=== PATIENT | female | born 1955 | race Caucasian/White ===

== ENCOUNTER 2018-11-05 13:38 | Emergency (ER) | payer MEDICAID, SELFPAY ==
[2018-11-05 13:49] VITALS: BP 164/53; PULSE 64; RESP 16; TEMP 37; O2SAT 97
--- NOTE | 2018-11-05 13:58 | DI.RAD_ITS ---
SYMPTOMS/DIAGNOSIS: CAUGHT IN SMALL CARVING SAW RIGHT THUMB: Four views were obtained. No fracture is seen.
--- NOTE | 2018-11-05 14:04 | ED.GENADUL_ITS ---
Discharge Plan Disposition Patient Disposition: HOME Condition: Fair Discharge Details Chief Complaint: Laceration Clinical Impression: Laceration of right thumb Primary Care Provider: Chandni Phillips ED Provider: Michelle Vicente Home Meds and New Rx's Prescriptions: Continued clobetasol-emollient 45 GM cream 1 lizette Topical DAILY PRN Qty: 45 RF: 3 nicotine (polacrilex) 4 MG gum 4 mg PO Q3H PRN Qty: 240 RF: 1 omeprazole 20 MG capsule,delayed release(DR/EC) 20 mg PO DAILY Qty: 60 RF: 0 aspirin [Aspir-81] 81 MG tablet,delayed release (DR/EC) 81 mg PO DAILY Qty: 90 RF: 4 simvastatin 40 MG tablet 40 mg PO HS Qty: 90 RF: 4 hydrochlorothiazide 25 MG tablet 25 mg PO DAILY Qty: 90 RF: 4 Discharge Instructions Instructions: Care For Your Stitches (ED), Laceration (ED) Additional Instructions: Keep wound clean, dry, covered. Keep current dressing on for the next 24 hours. May cover with bandaid after that. May wash with soap and water but do not soak. Wear a glove when preforming activities that may lead to possible infection. Monitor for signs of infection including redness, warmth, drainage, fevers/chills. If these arise seek care urgently once again. Otherwise please return in one week for suture removal. Referrals: Chandni Phillips, ZAKI [Primary Care Provider] - Discharge Data Discharge Date/Time-TO BE ENTERED AT DEPARTURE: 11/05/18 15:20 Medical Decision Making Patient 63-year-old right-hand dominant female presents today with chief complaint laceration to the distal aspect of the right thumb. She reports a prior to arrival she was working with a band saw cutting a piece of wood when she slipped and cut the distal aspect of her thumb. Denies other injury at the time of the incident. Last tetanus was updated in 2015. 2 point discrimination is diminished distal to the laceration. No active bleeding at this time, patient ahs been applying pressure to the wound. Obtain x-ray to evaluate for any bony abnormality given the depth of the wound. No bony normality noted on the imaging Patient I discussed risk/benefits of closure as well as expected procedural steps. She voiced understanding and wished to proceed Procedure note: Using standard sterile technique, a digital block was performed using 1% lidocaine plain. 5 cc was injected. The sufficiently anesthetized the digit. Wound was then copiously irrigated with sterile saline and cleansed with chlorhexidine. Wound was explored to base in bloodless field. No foreign body or debris was noted. Attention was then turned to closure. #5 simple interrupted sutures using a 5-0 nylon was placed. Patient tolerated procedure well and a dry, sterile, bulky dressing was applied per Patient I discussed wound care in depth. Advised that she return in 1 week for suture removal. We discussed signs symptoms of infection when to seek care urgently once again. All of her questions and concerns were addressed and she is in agreement this plan. HPI General Mode of arrival: ambulatory . Date/Time Provider Initiated Documentation: 11/05/18 13:45 . Limitations to Documentation: no limitations . Information obtained by: patient and family . History of Present Illness 63 year old F presents to the emergency department with the chief complaint of laceration to right thumb, described as moderate, with intensity rated at 5. Quality is described as aching, and is localized to the right and upper extremity. Patient reports no radiation. Patient started experiencing this minute(s) (30) and it has been constant. No relieving factors improve symptom(s), No exacerbating factors reported . Patient notes denies fever/chills and rash. Patient did receive the following treatments prior to arrival, none Related Data Home Medications Medication Instructions Recorded Confirmed clobetasol-emollient 1 lizette TOPICAL DAILY PRN #45 gm 02/02/15 11/05/18 nicotine (polacrilex) 4 mg PO Q3H PRN #240 piece of gum 03/01/16 11/05/18 aspirin [Aspir-81] 81 mg PO DAILY #90 tab-cap 03/25/18 11/05/18 hydrochlorothiazide 25 mg PO DAILY #90 tab-cap 03/25/18 11/05/18 omeprazole 20 mg PO DAILY #60 tab-cap 03/25/18 11/05/18 simvastatin 40 mg PO HS #90 tab-cap 03/25/18 11/05/18 Previous Rx's Medication Instructions Recorded aspirin [Aspir-81] 81 mg PO DAILY #90 tab-cap 03/25/18 hydrochlorothiazide 25 mg PO DAILY #90 tab-cap 03/25/18 omeprazole 20 mg PO DAILY #60 tab-cap 03/25/18 simvastatin 40 mg PO HS #90 tab-cap 03/25/18 Allergies Allergy/AdvReac Type Severity Reaction Status Date / Time No Known Allergies Allergy Unverified 11/05/18 13:52 Review of Systems Constitutional Reports as per HPI, Denies chills and Denies fever(s) Musculoskeletal Reports as per HPI Integumentary/Breasts Reports as per HPI Neurologic Reports as per HPI, Denies sensory deficit and Denies paresthesias PFS Surgical History Abdominal hysterectomy Bilateral salpingectomy with oophorectomy Oophrectomy, Right STRESS TEST (02/12/14) Family History Mother Disorder of thyroid gland Essential hypertension Personal history of malignant neoplasm Heart disease Hyperlipidemia Stroke Father Essential hypertension Heart disease Hyperlipidemia Brother Essential hypertension Hyperlipidemia Brother Essential hypertension Hyperlipidemia Brother Essential hypertension Meniere's disease Brother Hyperlipidemia Grandfather Heart disease Grandfather Heart disease Grandmother Personal history of malignant neoplasm Grandmother Heart disease Social History Smoking/Tobacco Use Status: Former Tobacco Use Exam Const General: cooperative, healthy appearing, comfortable, no acute distress and well developed Nutritional Appearance: average body habitus and well nourished Orientation: alert and awake Resp Effort & Inspection: normal respiratory effort, able to speak in complete sentences and no respiratory distress Cardio Rate: regular rate Rhythm: regular rhythm Skin Trauma: laceration (1.5cm laceration to distal right thumb, no active bleeding) Neuro General: alert and awake Cognition: normal cognition Speech: speech normal Gait: normal gait Sensory Exam: abnormal double simultaneous stimulation (diminished distal to laceration) Extrem Right upper extremity: full ROM, normal capillary refill, no joint enlargement and hand Details: normal capillary refill, tenderness and laceration; neurosensory exam abnormal (2point diminished as above); abnormal to inspection (laceration as above), no cyanosis and no edema Psych Appearance: grossly normal and well kempt Mental Status: mental status grossly normal Speech and Movement: speech and movement normal
--- NOTE | 2018-11-05 15:36 | DI.VRAD_ITS ---
EXAM: XR Right Finger(s), 2 or More Views EXAM DATE/TIME: 11/05/2018 2:19 PM CLINICAL HISTORY: 63 years old, female; Injury or trauma; Injury history: Finger vs small carving saw; Initial encounter; Laceration; Right; Thumb; Injury date: 11/05/2018 TECHNIQUE: XR Right finger minimum 2 views. COMPARISON: No relevant prior studies available. FINDINGS: Bones/joints: Bony alignment is anatomic without evidence for fracture or dislocation. Soft tissues: Soft tissue laceration noted at the level of the distal tuft, palmar aspect. IMPRESSION: Pulmonary aspect laceration distal tuft of the first digit. No bony abnormality evident. COMMENT: Preliminary interpretation is based on receipt of 4 image(s). A final report will be issued subsequently. Dictated and Authenticated by: Jeniffer Velásquez MD. Ordering:FABIOLA Martinez MD
== END 2018-11-05 15:20 | disposition home or self-care (01) ==
LOC: ER 15:37
PROVIDERS: Emergency Provider Physician Assistant; PCP Nurse Practitioner Family
DX: S61.011A Laceration without foreign body of right thumb without damage to nail, initial encounter (principal); W31.2XXA Contact with powered woodworking and forming machines, initial encounter
CPT/HCPCS: 12001; 73140

== ENCOUNTER 2018-11-12 10:19 | Emergency (ER) | payer MEDICAID, SELFPAY ==
[2018-11-12 10:23] VITALS: TEMP 36.7
--- NOTE | 2018-11-12 10:47 | W.ED.GENAD ---
Discharge Plan Disposition Patient Disposition: HOME Condition: Good Discharge Details Chief Complaint: SutureRem Clinical Impression: Encounter for removal of sutures Primary Care Provider: Chandni Phillips ED Provider: Gonsalo Bhatt Home Meds and New Rx's Prescriptions: No Action clobetasol-emollient 45 GM cream 1 lizette Topical DAILY PRN Qty: 45 RF: 3 nicotine (polacrilex) 4 MG gum 4 mg PO Q3H PRN Qty: 240 RF: 1 omeprazole 20 MG capsule,delayed release(DR/EC) 20 mg PO DAILY Qty: 60 RF: 0 aspirin [Aspir-81] 81 MG tablet,delayed release (DR/EC) 81 mg PO DAILY Qty: 90 RF: 4 simvastatin 40 MG tablet 40 mg PO HS Qty: 90 RF: 4 hydrochlorothiazide 25 MG tablet 25 mg PO DAILY Qty: 90 RF: 4 Discharge Instructions Instructions: Stitches Removal (ED) Additional Instructions: Watch for any signs of infection and return immediately if these occur otherwise follow-up with your primary care provider as Referrals: Chandni Phillips, ZAKI [Primary Care Provider] - Medical Decision Making Patient presenting to the emergency department for chief complaint of right thumb laceration and need of suture removal. Patient states laceration to thumb approximately 1 week ago. Wound appears well-healing and no signs of purulent drainage, dehiscence, or significant erythema. 5 sutures were removed and there was slight opening of the wound so Steri-Strips were placed over wound and patient given a foam metal splint to limit mobility of wound and encouraged to use this over the next week to further continue healing. There was no significant bleeding or drainage so I feel the patient is able to be safely discharged without any further interventions. Patient encouraged to watch for signs of infection and return immediately if these occur. HPI General Mode of arrival: ambulatory. Date/Time Provider Initiated Documentation: 11/12/18 10:21. Limitations to Documentation: no limitations. Information obtained by: patient, RN notes reviewed and old records reviewed. History of Present Illness 63 year old F presents to the emergency department with the chief complaint of Suture removal, described as mild, with intensity rated at 2. and is localized to the right and upper extremity. Patient notes no other symptoms.. Patient did receive the following treatments prior to arrival, none Related Data Home Medications Medication Instructions Recorded Confirmed clobetasol-emollient 1 lizette TOPICAL DAILY PRN #45 gm 02/02/15 11/05/18 nicotine (polacrilex) 4 mg PO Q3H PRN #240 piece of gum 03/01/16 11/05/18 aspirin [Aspir-81] 81 mg PO DAILY #90 tab-cap 03/25/18 11/05/18 hydrochlorothiazide 25 mg PO DAILY #90 tab-cap 03/25/18 11/05/18 omeprazole 20 mg PO DAILY #60 tab-cap 03/25/18 11/05/18 simvastatin 40 mg PO HS #90 tab-cap 03/25/18 11/05/18 Previous Rx's Medication Instructions Recorded aspirin [Aspir-81] 81 mg PO DAILY #90 tab-cap 03/25/18 hydrochlorothiazide 25 mg PO DAILY #90 tab-cap 03/25/18 omeprazole 20 mg PO DAILY #60 tab-cap 03/25/18 simvastatin 40 mg PO HS #90 tab-cap 03/25/18 Allergies Allergy/AdvReac Type Severity Reaction Status Date / Time No Known Allergies Allergy Unverified 11/05/18 13:52 General Stated Complaint: SutureRem BUBBA: 5 Review of Systems Constitutional Denies chills and Denies fever(s) Musculoskeletal Reports as per HPI Integumentary/Breasts Denies rash and Denies skin swelling PFSH Surgical History Abdominal hysterectomy Bilateral salpingectomy with oophorectomy Oophrectomy, Right STRESS TEST (02/12/14) Family History Mother Disorder of thyroid gland Essential hypertension Personal history of malignant neoplasm Heart disease Hyperlipidemia Stroke Father Essential hypertension Heart disease Hyperlipidemia Brother Essential hypertension Hyperlipidemia Brother Essential hypertension Hyperlipidemia Brother Essential hypertension Meniere's disease Brother Hyperlipidemia Grandfather Heart disease Grandfather Heart disease Grandmother Personal history of malignant neoplasm Grandmother Heart disease Social History Smoking/Tobacco Use Status: Former Tobacco Use Exam Const General: cooperative, comfortable and no acute distress Orientation: alert, awake and oriented x3 Skin Rashes: no rashes Trauma: laceration (Right thumb laceration healing well without erythema, purulence,) Course Vital Signs Temperature 36.7 C 11/12/18 10:23 Temperature 36.7 C 11/12/18 10:23 Temperature Source Temporal Artery Scan 11/12/18 10:23 Oxygen Delivery Method Room Air 11/12/18 10:23 Oxygen Flow Rate 0 11/12/18 10:23 Pain Level 0 11/12/18 10:23
--- NOTE | 2018-11-12 10:51 | ED.GENADUL_ITS ---
Discharge Plan Disposition Patient Disposition: HOME Condition: Good Discharge Details Chief Complaint: SutureRem Clinical Impression: Encounter for removal of sutures Primary Care Provider: Chandni Phillips ED Provider: Gonsalo Bhatt Home Meds and New Rx's Prescriptions: No Action clobetasol-emollient 45 GM cream 1 lizette Topical DAILY PRN Qty: 45 RF: 3 nicotine (polacrilex) 4 MG gum 4 mg PO Q3H PRN Qty: 240 RF: 1 omeprazole 20 MG capsule,delayed release(DR/EC) 20 mg PO DAILY Qty: 60 RF: 0 aspirin [Aspir-81] 81 MG tablet,delayed release (DR/EC) 81 mg PO DAILY Qty: 90 RF: 4 simvastatin 40 MG tablet 40 mg PO HS Qty: 90 RF: 4 hydrochlorothiazide 25 MG tablet 25 mg PO DAILY Qty: 90 RF: 4 Discharge Instructions Instructions: Stitches Removal (ED) Additional Instructions: Watch for any signs of infection and return immediately if these occur otherwise follow-up with your primary care provider as Referrals: Chandni Phillips, ZAKI [Primary Care Provider] - Medical Decision Making Patient presenting to the emergency department for chief complaint of right thumb laceration and need of suture removal. Patient states laceration to thumb approximately 1 week ago. Wound appears well-healing and no signs of purulent drainage, dehiscence, or significant erythema. 5 sutures were removed and there was slight opening of the wound so Steri-Strips were placed over wound and patient given a foam metal splint to limit mobility of wound and encouraged to use this over the next week to further continue healing. There was no significant bleeding or drainage so I feel the patient is able to be safely discharged without any further interventions. Patient encouraged to watch for signs of infection and return immediately if these occur. HPI General Mode of arrival: ambulatory . Date/Time Provider Initiated Documentation: 11/12/18 10:21 . Limitations to Documentation: no limitations . Information obtained by: patient, RN notes reviewed and old records reviewed . History of Present Illness 63 year old F presents to the emergency department with the chief complaint of Suture removal, described as mild, with intensity rated at 2. and is localized to the right and upper extremity. Patient notes no other symptoms.. Patient did receive the following treatments prior to arrival, none Related Data Home Medications Medication Instructions Recorded Confirmed clobetasol-emollient 1 lizette TOPICAL DAILY PRN #45 gm 02/02/15 11/05/18 nicotine (polacrilex) 4 mg PO Q3H PRN #240 piece of gum 03/01/16 11/05/18 aspirin [Aspir-81] 81 mg PO DAILY #90 tab-cap 03/25/18 11/05/18 hydrochlorothiazide 25 mg PO DAILY #90 tab-cap 03/25/18 11/05/18 omeprazole 20 mg PO DAILY #60 tab-cap 03/25/18 11/05/18 simvastatin 40 mg PO HS #90 tab-cap 03/25/18 11/05/18 Previous Rx's Medication Instructions Recorded aspirin [Aspir-81] 81 mg PO DAILY #90 tab-cap 03/25/18 hydrochlorothiazide 25 mg PO DAILY #90 tab-cap 03/25/18 omeprazole 20 mg PO DAILY #60 tab-cap 03/25/18 simvastatin 40 mg PO HS #90 tab-cap 03/25/18 Allergies Allergy/AdvReac Type Severity Reaction Status Date / Time No Known Allergies Allergy Unverified 11/05/18 13:52 General Stated Complaint: SutureRem BUBBA: 5 Review of Systems Constitutional Denies chills and Denies fever(s) Musculoskeletal Reports as per HPI Integumentary/Breasts Denies rash and Denies skin swelling PFSH Surgical History Abdominal hysterectomy Bilateral salpingectomy with oophorectomy Oophrectomy, Right STRESS TEST (02/12/14) Family History Mother Disorder of thyroid gland Essential hypertension Personal history of malignant neoplasm Heart disease Hyperlipidemia Stroke Father Essential hypertension Heart disease Hyperlipidemia Brother Essential hypertension Hyperlipidemia Brother Essential hypertension Hyperlipidemia Brother Essential hypertension Meniere's disease Brother Hyperlipidemia Grandfather Heart disease Grandfather Heart disease Grandmother Personal history of malignant neoplasm Grandmother Heart disease Social History Smoking/Tobacco Use Status: Former Tobacco Use Exam Const General: cooperative, comfortable and no acute distress Orientation: alert, awake and oriented x3 Skin Rashes: no rashes Trauma: laceration (Right thumb laceration healing well without erythema, purulence,) Course Vital Signs Temperature 36.7 C 11/12/18 10:23 Temperature 36.7 C 11/12/18 10:23 Temperature Source Temporal Artery Scan 11/12/18 10:23 Oxygen Delivery Method Room Air 11/12/18 10:23 Oxygen Flow Rate 0 11/12/18 10:23 Pain Level 0 11/12/18 10:23
== END 2018-11-12 10:55 | disposition home or self-care (01) ==
LOC: ER 11:22
PROVIDERS: Emergency Provider Nurse Practitioner Family; PCP Nurse Practitioner Family
DX: S61.011D Laceration without foreign body of right thumb without damage to nail, subsequent encounter (principal); W31.2XXD Contact with powered woodworking and forming machines, subsequent encounter; Z48.02 Encounter for removal of sutures

== ENCOUNTER 2019-03-17 12:49 | Outpatient (CLI) | payer MEDICARE, OTHER, SELFPAY ==
[2019-03-17 13:24] LABS: Hemoglobin A1C 6.2 % (4.5-6.2)
[2019-03-17 14:31] LABS: ALT 20 U/L (12-78); AST 21 U/L (15-37); Albumin 3.9 g/dL (3.4-5.0); Alkaline Phosphatase 88 U/L (46-116); Anion Gap 8.8 mmol/L (3-11); BUN 11 mg/dL (7-18); Bilirubin, Total 0.4 mg/dL (0.2-1.0); CO2 30.2 mmol/L (21.0-32.0); CREATININE 0.72 mg/dL (0.55-1.02); Calcium 9.6 mg/dL (8.5-10.1); Chloride 102 mmol/L (98-107); Cholesterol 194 mg/dL (50-200); Glucose 110 mg/dL (70-100); HDL Cholesterol 59 mg/dL (40-60); LDL CHOLESTEROL 115 mg/dL (<100); Potassium 3.8 mmol/L (3.5-5.1); Sodium 141 mmol/L (136-145); Total Protein 7.1 g/dL (6.4-8.2); Triglyceride 140 mg/dL (30-150)
== END 2019-03-17 13:09 ==
PROVIDERS: PCP Nurse Practitioner Family; Visit Provider Nurse Practitioner Family
DX: I10 Essential (primary) hypertension (principal); E78.5 Hyperlipidemia, unspecified; R73.09 Other abnormal glucose
CPT/HCPCS: 36415; 80053; 80061; 83721; 83036

== ENCOUNTER 2019-04-08 00:10 | Outpatient (CLI) | payer MEDICARE, OTHER, SELFPAY ==
--- NOTE | 2019-04-08 14:49 | DI.RAD_ITS ---
SYMPTOMS/DIAGNOSIS: ASYMPTOMATIC POSTMENOPAUSAL STATE, Z78.0 DEXA SCAN: Routine examination was performed. The single lateral view of the spine shows no compression deformities. Evaluation of the left hip shows a total T score of -1.9 and a Z score of -0.7. This is consistent with osteopenia and an increased fracture risk. Evaluation of the lumbar spine shows a total T score of 1.1 and a Z score of 2.9. This is within normal limits. There is no evidence of osteoporosis. IMPRESSION: Osteopenia in the left hip.
--- NOTE | 2019-04-08 14:49 | DI.MAMMO_ITS ---
SYMPTOMS/DIAGNOSIS: SCREENING, Z12.31 MAMMOGRAMS: Mammograms were interpreted according to the usual protocol including computer analysis with CAD system, tomosynthesis and C view imaging. The breast tissue is of moderate radiodensity. There is no evidence of a mass. There are no suspicious calcifications and there has been no significant interval change when compared with prior images. SUMMARY: No evidence of malignancy, category 1, yearly screening mammography is recommended. Breast density category B. SA ASSESSMENT OF FINDINGS: Negative. Category 1. Patient will receive a letter notifying them of these results. BI-RADS category B. There are scattered areas of fibroglandular density.
== END 2019-04-08 00:30 ==
PROVIDERS: PCP Nurse Practitioner Family; Visit Provider Nurse Practitioner Family
DX: Z12.31 Encounter for screening mammogram for malignant neoplasm of breast (principal); M85.88 Other specified disorders of bone density and structure, other site; Z78.0 Asymptomatic menopausal state
CPT/HCPCS: 77063; 77067; 77080

== ENCOUNTER 2020-04-15 02:46 | Outpatient (CLI) | payer MEDICARE, OTHER, SELFPAY ==
--- NOTE | 2020-04-15 12:15 | DI.MAMMO_ITS ---
EXAM: MAMMO SCREENING CLINICAL HISTORY: screening,z12.39 TECHNIQUE: Mammograms were interpreted according to the usual protocol including computer analysis w [employer] CAD system, tomosynthesis and C-view imaging. COMPARISON: FINDINGS: The breasts are of moderate density with fairly symmetrical distribution of fibroglandular tissue. N o dominant mass or clumped microcalcification is identified in either breast. Current examination is compared with previous studies including March 2019 and there has been no gross interval change in lizette earance in comparison with the prior studies. IMPRESSION: No specific evidence of malignancy at this time. Routine screening examinations are suggested at yea rly intervals due to the family history of breast carcinoma. BI-RADS Cat 1 - Negative: Breast Density - Category B - Scattered areas of fibroglandular density:
== END 2020-04-15 03:06 ==
PROVIDERS: PCP Nurse Practitioner Family; Visit Provider Nurse Practitioner Family
DX: Z12.31 Encounter for screening mammogram for malignant neoplasm of breast (principal); Z80.3 Family history of malignant neoplasm of breast
CPT/HCPCS: 77063; 77067

== ENCOUNTER 2020-04-19 22:27 | Outpatient (REF) | payer MEDICARE, OTHER, SELFPAY ==
[2020-04-19 20:56] LABS: ALT 26 U/L (14-59); AST 22 U/L (15-37); Albumin 3.8 g/dL (3.4-5.0); Alkaline Phosphatase 80 U/L (46-116); Anion Gap 10.6 mmol/L (3-11); BUN 14 mg/dL (7-18); Bilirubin, Total 0.3 mg/dL (0.2-1.0); CO2 29.4 mmol/L (21.0-32.0); CREATININE 0.68 mg/dL (0.55-1.02); Calcium 9.1 mg/dL (8.5-10.1); Calculated LDL 114 mg/dL (<100); Chloride 104 mmol/L (98-107); Cholesterol 190 mg/dL (<200); Glucose 150 mg/dL (74-106); HDL Cholesterol 57 mg/dL (40-60); Potassium 3.5 mmol/L (3.5-5.1); Sodium 144 mmol/L (136-145); Total Protein 6.9 g/dL (6.4-8.2); Triglyceride 98 mg/dL (<150)
[2020-04-19 21:11] LABS: Hemoglobin A1C 5.9 % (3.8-5.6)
[2020-04-19 21:23] LABS: Creatine Kinase 98 U/L (26-192)
[2020-04-19 21:34] LABS: Vitamin D 25 Total 67.1 ng/ml (30-100)
== END 2020-04-19 22:47 ==
LOC: LBN 22:27
PROVIDERS: PCP Nurse Practitioner Family; Visit Provider Nurse Practitioner Family
DX: R73.03 Prediabetes (principal); M85.852 Other specified disorders of bone density and structure, left thigh; M79.10 Myalgia, unspecified site; E78.5 Hyperlipidemia, unspecified
CPT/HCPCS: 80053; 80061; 82306; 82550; 83036

== ENCOUNTER 2021-04-20 01:34 | Outpatient (CLI) | payer MEDICARE, OTHER, SELFPAY ==
--- NOTE | 2021-04-20 08:15 | DI.MAMMO_ITS ---
Exam(s) MAMMO SCREENING EXAM: MAMMO SCREENING CLINICAL HISTORY: screening, Z12.39 TECHNIQUE: Bilateral full field digital CC and MLO mammographic images were obtained with 3D tomosyn thesis and utilizing computer aided detection (CAD). COMPARISON: Available for comparison. FINDINGS: Masses/Architectural Distortion: None seen. Microcalcifications: No suspicious pleomorphic-type are seen. Skin Thickening/Nipple Retraction: None. IMPRESSION: 1. No significant interval change with no specific features of malignancy noted. 2. Unless there is more urgent need, screening mammography is recommended, as per [employer] guidelines. BI-RADS Category 1 - Negative Breast Density - Category B - Scattered areas of fibroglandular density Breast density category C or D implies that the patient has dense breast tissue. Dense breast tissue is very common and is not abnormal but dense breast tissue can make it harder to find cancer on a ma mmogram. Also, dense breast tissue may increase their breast cancer risk. This information about the result of the mammogram report was provided to the patient to raise their awareness. Use this report when you speak with the patient about their risks for breast cancer, which includes their family hist ory. At that time, you may recommend for more screening tests (Ultrasound or MRI) as they might be us eful based on their risk. A negative radiographic report should not delay biopsy if a dominant or clinically suspicious mass is present. Up to ten percent of cancers are not identified on mammography. A negative report may reinforce clinical impression. Adenosis and dense breasts may obscure an underlying neoplasm. False positive reports average 6 to 10%. Patient will receive a letter notifying them of these results.
--- NOTE | 2021-04-20 14:03 | DI.US_ITS ---
APPROVED REPORT EXAM: Comprehensive 2D, Doppler, and color-flow Echocardiogram Patient Location: Out-Patient Web Marketing Coordinator: April Acosta RDCS (AE) Indications: Re Evaluate Aortic Stenosis, Other Information Study Quality: Adequate Conclusion Left Ventricle : The left ventricle is normal size. The left ventricular systolic function is normal. The left ventricular ejection fraction is within the normal range. There is normal left ventricular wall thickness. There is normal LV segmental wall motion. The left ventricular diastolic function is normal. LVEF is 60%. Right Ventricle : The right ventricle is normal size. The right ventricular systolic function is norm al. The RVSP is 25.0mmHg. Aortic Valve : Aortic valve is calcified. Aortic valve is trileaflet. Trace aortic regurgitation. Mil d aortic stenosis. Peak aortic valve gradient is 21.3_mmHg. Highest mean aortic valve gradient is 11. 8mmHg. Peak aortic valve gradient is 1.24mmHg. Mitral Valve : The mitral valve is normal in structure. Mild mitral regurgitation. No evidence of lane ral valve stenosis. Great Vessels : The aortic root is normal in size. Ascending aorta is not well visualized. Aortic arc h is normal in caliber. IVC is normal in size and collapses >50% with inspiration. Compared to study from [facility] in 2018, there is no significant change. Wall motion Left Ventricle The left ventricle is normal size. The left ventricular systolic function is normal. The left ventric ular ejection fraction is within the normal range. There is normal left ventricular wall thickness. T here is normal LV segmental wall motion. The left ventricular diastolic function is normal. There is no ventricular septal defect visualized. LVEF is 60%. Right Ventricle The right ventricle is normal size. The right ventricular systolic function is normal. The RVSP is 25 .0mmHg. Atria The left atrium size is normal. The right atrium size is normal. The interatrial septum is intact wit h no evidence for an atrial septal defect. Aortic Valve Aortic valve is calcified. Aortic valve is trileaflet. Mild aortic stenosis. Peak aortic valve gradie nt is 21.3_mmHg. Highest mean aortic valve gradient is 11.8mmHg. Peak aortic valve gradient is 1.24mm Hg. Trace aortic regurgitation. Mitral Valve The mitral valve is normal in structure. No evidence of mitral valve stenosis. Mild mitral regurgitat ion. Tricuspid Valve The tricuspid valve is normal in structure. There is no tricuspid valve stenosis. Trace tricuspid reg urgitation. Pulmonic Valve The pulmonary valve is normal in structure. There is no pulmonic valvular stenosis. There is no pulmo delmy valvular regurgitation. Great Vessels The aortic root is normal in size. Ascending aorta is not well visualized. Aortic arch is normal in c aliber. IVC is normal in size and collapses >50% with inspiration. Pericardium There is no pericardial effusion. 2D Dimensions IVSD d PLAX 1.01 cm F: 0.6-1.0 LV Vol A2C d MOD 107.5 mL LVPW d PLAX 1.01 cm F: 0.6 - 1.0 LV Vol A4C d MOD 98.0 mL LVID d PLAX 4.76 cm F: 3.8 - 5.2 LA vol/ BSA A2C s A-L 26.2 mL/m2 LVDs 3.15 cm F: 2.2 - 3.5 LA vol/ BSA A4C s A-L 27.1 mL/m2 Ao Root d 2.64 cm F: 2.7 - 3.3 LA Vol/ BSA Biplane s A-L 28.0 mL/m2 RA Area A4C 13.39 cm2 LA Area A4C s MOD 18.88 cm2 RA Vol/ BSA A4C s A-L 19.1 mL/m2 LA Area A2C s MOD 17.65 cm2 LV EF Teichholz 62.2 % LV EF A4C MOD 62.4 % LVEF (Otero's) 59.41 % F: 54 - 74 LV EF A2C MOD 58.0 % LV Volume 77.77 mL F: 46 - 106 LV EF Biplane MOD 59.4 % LV Volume Index 39.88 mL/m2 F: 29 - 61 SV 61.08 mL LV Vol Biplane MOD 102.8 mL SV Index 31.33 mL/m2 FS 33.50 % M-Mode TAPSE 2.56 cm (M/F) >1.7 LV Diastology MV E' medial 0.074 (>0.07 m/s) E/A Ratio 1.4 LV E/e MED 13.05 (<14) MV E Vmax 0.97 (0.4-1.3 m/s) MV E' lateral 0.103 (>0.1 m/s) MV A Vmax 0.70 (0.4-1.3 m/s) LV E/e LAT 9.35 (<14) MV E/A Ratio 1.37 MV E/E' medial 13.10 MV E/E' lateral 9.39 Aortic Valve LVOT Area 2.77 cm2 AoV Area Vmax 1.24 cm2 LVOT Vmax 1.03 m/s AoV Area/ BSA (Vmax) 0.64 cm2/m2 LVOT Mean Kushal. 0.73 m/s BARRETT Mean Kushal. 1.23 cm2 LVOT Peak Grad 4.3 mmHg BARRETT Mean Kushal. Index 0.63 cm2/m2 LVOT Mean Grad 2.4 mmHg AR DT 2974 msec LVOT VTI 0.298 m AR PHT 862 msec LVOT Diam s 1.85 cm AoV Vmax 2.31 m/s Velocity Ratio 0.44 AoV Mean Kushal. 1.64 m/s AoV Peak Grad 21.3 mmHg LVOT SV 82.53 mL AoV Mean Grad 11.8 mmHg AoV VTI 0.599 m AoV Area VTI 1.38 cm2 AoV Area/ BSA (VTI) 0.71 cm/m2 Mitral Valve MV DT 257 (160-240 msec) MR Vmax 5.01 m/s MV PHT 75 msec MR VTI 1.748 m MV Area PHT 2.95 cm2 MR Peak Grad 100.4 mmHg MV VTI 0.405 m MR Mean Grad 77.4 mmHg MV VTI Annulus 0.421 m MR PISA Radius 0.49 cm MV Area VTI 2.12 (4.0-6.0 cm2) MR EROA 0.11 cm2 MR Aliasing Velocity 0.35 m/s MR PISA 1.53 cm2 Pulmonary Valve PV Vmax 1.08 (0.5-1.5 m/s) RVOT Peak Gr. 2.00 mmHg PV Peak Grad 4.6 mmHg RVOT Mean Gr. 1.10 mmHg PV Mean Grad 2.5 mmHg RVOT VTI 0.201 m PV VTI 0.266 m RVOT Vmax 0.71 m/s Tricuspid Valve TR Peak Grad 22.0 mmHg TR Vmax 2.35 m/s RA Pressure 3.00 mmHg RVSP (TR) 25.0 mmHg
== END 2021-04-20 01:54 ==
PROVIDERS: PCP Nurse Practitioner Family; Visit Provider Nurse Practitioner Family
DX: Z12.31 Encounter for screening mammogram for malignant neoplasm of breast (principal); I08.0 Rheumatic disorders of both mitral and aortic valves
CPT/HCPCS: 77063; 77067; 93306

== ENCOUNTER 2021-05-03 03:17 | Outpatient (CLI) | payer MEDICARE, OTHER, SELFPAY ==
[2021-05-03 12:19] LABS: Hemoglobin A1C 6.2 % (<5.7)
[2021-05-03 13:55] LABS: BUN 14 mg/dL (7-18); CREATININE 0.7 mg/dL (0.55-1.02); Calcium 9.3 mg/dL (8.5-10.1); Calculated LDL 117 mg/dL (<100); Chloride 103 mmol/L (98-107); Cholesterol 198 mg/dL (<200); Glucose 117 mg/dL (74-106); HDL Cholesterol 57 mg/dL (40-60); Potassium 3.6 mmol/L (3.5-5.1); Sodium 142 mmol/L (136-145); Triglyceride 121 mg/dL (<150)
== END 2021-05-03 03:18 | disposition home or self-care (01) ==
LOC: LBO 03:17
PROVIDERS: PCP Nurse Practitioner Family; Visit Provider Nurse Practitioner Family
DX: I10 Essential (primary) hypertension (principal); R73.03 Prediabetes; E78.5 Hyperlipidemia, unspecified
CPT/HCPCS: 36415; 80048; 80061; 83036

== ENCOUNTER 2021-06-16 07:30 | Outpatient (REF) | payer MEDICARE, OTHER, SELFPAY ==
[2021-06-16 22:18] LABS: Anion Gap 8.1 mmol/L (3-11); BUN 15 mg/dL (7-18); CO2 30.9 mmol/L (21.0-32.0); CREATININE 0.7 mg/dL (0.55-1.02); Calcium 9.6 mg/dL (8.5-10.1); Calculated LDL 102 mg/dL (<100); Chloride 103 mmol/L (98-107); Cholesterol 187 mg/dL (<200); Glucose 90 mg/dL (74-106); HDL Cholesterol 59 mg/dL (40-60); Potassium 3.9 mmol/L (3.5-5.1); Sodium 142 mmol/L (136-145); Triglyceride 133 mg/dL (<150)
== END 2021-06-17 07:30 | disposition home or self-care (01) ==
LOC: LBN 07:30
PROVIDERS: PCP Nurse Practitioner Family; Visit Provider Nurse Practitioner Family
DX: E78.5 Hyperlipidemia, unspecified (principal); I10 Essential (primary) hypertension
CPT/HCPCS: 80048; 80061

== ENCOUNTER → 2022-09-22 00:20 | Outpatient (CLI) | payer MEDICARE, SELFPAY ==
--- NOTE | 2022-09-22 08:30 | DI.RAD_ITS ---
Exam(s) XR HIP RT COMPLETE AP PELVIS EXAM: XR HIP RT COMPLETE AP PELVIS CLINICAL HISTORY: right hip into right buttock pain, M25.551, G89.29. TECHNIQUE: 2D digital imaging was performed. COMPARISON: No exams were available for comparison FINDINGS: 3 views There is no evidence of pelvic nor hip fracture. Additional views of the right hip reveal mild narro wing of the superolateral joint space. No femoral head osteophytes. No degenerative subarticular cy sts in the acetabulum. There is disc space narrowing at L4-5 level incidentally noted. IMPRESSION: Mild degenerative changes in the right hip. Disc space narrowing at L4-5 level. DATA REPOSITORY: RADIATION DOSE DELIVERED:
--- NOTE | 2022-09-22 08:30 | DI.RAD_ITS ---
Exam(s) XR LUMBAR SPINE COMPLETE EXAM: XR LUMBAR SPINE COMPLETE CLINICAL HISTORY: right hip into right buttock pain, M25.551, G89.29. TECHNIQUE: 2D digital imaging was performed. COMPARISON: No exams were available for comparison FINDINGS: Five views: The 12th ribs are rudimentary. There is no evidence of compression fracture. No pars defects. Mild disc space narrowing noted at L3-4 and L5-S1 levels. Preservation of disc height at L4-5. there is mild degenerative anterolisthesis of L2 upon L3, approximately 2 millimeters. Normal disc height at this level. No significant scoliosis. Sacroiliac joints are age-appropriate. No osseous lesions. A set joint degenerative changes are seen at the lower 3 levels. IMPRESSION: Degenerative changes as described above. DATA REPOSITORY: RADIATION DOSE DELIVERED:
== END ==
PROVIDERS: PCP Nurse Practitioner Family; Visit Provider Nurse Practitioner Family
DX: G89.29 Other chronic pain (principal); M16.11 Unilateral primary osteoarthritis, right hip; M43.16 Spondylolisthesis, lumbar region
CPT/HCPCS: 72110; 73502

== ENCOUNTER 2022-11-24 01:34 | Outpatient (CLI) | payer MEDICARE, SELFPAY ==
[2022-11-24 12:09] LABS: ALT 15 U/L (14-59); AST 21 U/L (15-37); Albumin 3.9 g/dL (3.4-5.0); Alkaline Phosphatase 96 U/L (46-116); Anion Gap 6.8 mmol/L (3-11); BUN 11 mg/dL (7-18); Bilirubin, Total 0.5 mg/dL (0.2-1.0); CO2 31.2 mmol/L (21.0-32.0); CREATININE 0.9 mg/dL (0.55-1.02); Calcium 9.6 mg/dL (8.5-10.1); Calculated LDL 77 mg/dL (<100); Chloride 102 mmol/L (98-107); Cholesterol 159 mg/dL (<200); Estimated GFR 69.64 (mL/min/1.73m2); Glucose 130 mg/dL (74-106); HDL Cholesterol 61 mg/dL (40-60); Potassium 3.6 mmol/L (3.5-5.1); Sodium 140 mmol/L (136-145); TSH (W/Ref FT4) 0.49 uIU/mL (0.36-3.74); Total Protein 7.5 g/dL (6.4-8.2); Triglyceride 108 mg/dL (<150)
[2022-11-24 22:45] LABS: Estimated Average Glucose 131 mg/dL; Hemoglobin A1C 6.2 % (<5.7)
== END 2022-11-24 01:35 | disposition home or self-care (01) ==
LOC: LBO 01:34
PROVIDERS: PCP Nurse Practitioner Family; Visit Provider Nurse Practitioner Family
DX: E78.5 Hyperlipidemia, unspecified (principal); R73.03 Prediabetes
CPT/HCPCS: 36415; 80053; 80061; 83036; 84443

== ENCOUNTER → 2023-06-27 01:42 | Outpatient (CLI) | payer MEDICARE, SELFPAY ==
--- NOTE | 2023-06-27 08:15 | DI.MAMMO_ITS ---
Exam(s) MAMMO SCREENING EXAM: MAMMO SCREENING CLINICAL HISTORY: screening,z12.39 TECHNIQUE: Mammograms were interpreted according to the usual protocol including computer analysis w [employer] CAD system, tomosynthesis and C-view imaging. COMPARISON: [id number] FINDINGS: The breasts are composed of mainly fatty density , Breast Density category A. No suspicious masses or suspicious microcalcifications are seen. No skin thickening or abnormal axillary lymph nodes are seen. There has been no significant change from prior exams. IMPRESSION: BI-RADS Category 1, Negative mammogram Yearly screening mammography is recommended. Breast Density - Category A, fatty density. A negative radiographic report should not delay biopsy if a dominant or clinically suspicious mass is present. Up to ten percent of cancers are not identified on mammography. A negative report may reinforce clinical impression. Adenosis and dense breasts may obscure an underlying neoplasm. False positive reports average 6 to 10%. Patient will receive a letter notifying them of these results.
== END ==
PROVIDERS: PCP Nurse Practitioner Family; Visit Provider Nurse Practitioner Family
DX: Z12.31 Encounter for screening mammogram for malignant neoplasm of breast (principal)
CPT/HCPCS: 77063; 77067

== ENCOUNTER 2023-08-01 04:06 | Outpatient (CLI) | payer MEDICARE, SELFPAY ==
[2023-08-02 13:13] LABS: Hepatitis C Ab w Rflx HCV PCR Negative (Negative)
== END 2023-08-01 04:07 | disposition home or self-care (01) ==
LOC: LBO 04:06
PROVIDERS: PCP Nurse Practitioner Family; Visit Provider Nurse Practitioner Family
DX: I10 Essential (primary) hypertension (principal); E78.5 Hyperlipidemia, unspecified; Z11.59 Encounter for screening for other viral diseases; Z00.00 Encounter for general adult medical examination without abnormal findings
CPT/HCPCS: 36415; 86803

== ENCOUNTER 2023-08-09 17:40 | Emergency (ER) | payer MEDICARE, SELFPAY ==
[2023-08-09 17:41] VITALS: BP 182/58; PULSE 66; RESP 20; TEMP 36.6; O2SAT 100
[2023-08-09] MEDS: Acetaminophen 500 MG TAB 1000 MG PO (19:11)
[2023-08-09] MEDS: diazePAM 2 MG TAB 2.5 MG PO (19:11)
[2023-08-09 20:14] VITALS: BP 157/61; PULSE 63; RESP 19; O2SAT 97
[2023-08-09] MEDS: diazePAM 5 MG TAB PO (20:15)
[2023-08-09] MEDS: Dexamethasone 10 MG/ML VIAL PO (20:15)
--- NOTE | 2023-08-09 21:30 | W.ED.GENAD ---
Discharge Plan Disposition Patient Disposition: Home Discharge Details Clinical Impression: Acquired torticollis Primary Care Provider: Chandni Phillips ED Provider: Nikia Lehman Home Meds and New Rx's Prescriptions: New diazepam [Valium] 5 mg tablet 5 mg PO BID PRNQty: 5 0RF Continued Acid [employer] Vice President Complete (famot) 10-800-165 mg tablet,chewable 1 tab PO DAILY nicotine 10 mg cartridge 1 inh inhalation .6-16X/DAY PRN (Reason: nicotine cravings) Qty: 168 4RF Rx Instructions: 6 to 16 cartridges/day for first 6-12 weeks. Gradually reduce use over next 6-12wks. cholecalciferol (vitamin D3) 1,000 unit capsule 1,000 unit PO DAILY hydrochlorothiazide 25 mg tablet 25 mg PO DAILY Qty: 90 3RF nicotine (polacrilex) 4 mg gum 4 mg BC Q2H MDD 24 PRN (Reason: nicotine cravings) Qty: 100 4RF Rx Instructions: Weeks 1-6: 1 every 1-2hrs Weeks 7-9: 1 every 2-4hrs Weeks 10-12: 1 every 4-8hrs aspirin 81 mg tablet,delayed release (DR/EC) 81 mg PO DAILY Qty: 90 4RF losartan 100 mg tablet 100 mg PO DAILY Qty: 90 3RF Rx Instructions: Take 1 tab daily rosuvastatin 20 mg tablet 20 mg PO DAILY Qty: 90 3RF Discharge Instructions Instructions: Spasmodic Torticollis (ED) Additional Instructions: May apply Voltaren gel topically May take up to 3 g of Tylenol daily, you may take 500 mg every 4 hours or 1000 mg every 8 hours Warm compresses to the affected area You may take the Valium 2.5 to 5 mg every 8 hours as needed for muscle spasm, do not combine this with alcohol drive a vehicle after taking his meds Please return with worsening pain, headache, strength or sensation change, or should he have new or worsening complaints 48 hour recheck with pcp recommended Referrals: Chandni Phillips NP [Primary Care Provider] - Discharge Data Discharge Date/Time-TO BE ENTERED AT DEPARTURE: 08/09/23 20:22 Medical Decision Making 68-year-old female presenting with neck pain after doing some elevations, denies any strength or sensation change, denies any headache Afebrile and nontoxic, reproducible posterior paraspinal neck pain, no meningismus, pain increased with range of motion which is limited to the left, no trauma, known carotid disease, recent CTA performed, unlikely to be related, no headache or other neurological findings Feels marked improvement after Valium and Tylenol Valium supplied for home Single dose of Decadron Return precautions reviewed and patient expressed understanding HPI General Date/Time Provider Initiated Documentation: 08/09/23 17:51. HPI Narrative: This 68-year-old female presents with report of neck pain which started after she was working on her deck. She states she was looking up frequently with her renovation and thinks she has muscle spasm in her neck. She denies any headache. She denies any chest pain or shortness of breath. She denies any dizziness or vision change. She denies any strength or sensation changes distally. She states the pain is exacerbated with movement of her head. She denies any additional complaints at this time. Related Data Home Medications Medication Instructions Recorded Confirmed cholecalciferol (vitamin D3) 25 1,000 unit PO DAILY 09/24/19 08/09/23 mcg (1,000 unit) capsule aspirin 81 mg tablet,delayed 81 mg PO DAILY #90 tab-caps 11/09/20 08/09/23 release nicotine (polacrilex) 4 mg gum 4 mg buccal Q2H PRN nicotine 11/09/20 06/11/23 cravings #100 ea famotidine-Ca carb-mag hydrox 10 1 tab PO DAILY 07/22/21 08/09/23 mg-800 mg-165 mg chewable tablet (Acid [employer] Vice President Complete (famotidine)) losartan 100 mg tablet 100 mg PO DAILY #90 tabs 09/11/22 08/09/23 hydrochlorothiazide 25 mg tablet 25 mg PO DAILY #90 tab-caps 11/30/22 08/09/23 rosuvastatin 20 mg tablet 20 mg PO DAILY #90 tabs 05/16/23 08/09/23 nicotine 10 mg inhalation cartridge 1 inh inhalation .6-16X/DAY PRN 06/11/23 06/11/23 nicotine cravings #168 ea diazepam 5 mg tablet (Valium) 5 mg PO BID PRN #5 tabs 08/09/23 Previous Rx's Medication Instructions Recorded aspirin 81 mg tablet,delayed 81 mg PO DAILY #90 tab-caps 11/09/20 release nicotine (polacrilex) 4 mg gum 4 mg buccal Q2H PRN nicotine 11/09/20 cravings #100 ea losartan 100 mg tablet 100 mg PO DAILY #90 tabs 09/11/22 hydrochlorothiazide 25 mg tablet 25 mg PO DAILY #90 tab-caps 11/30/22 rosuvastatin 20 mg tablet 20 mg PO DAILY #90 tabs 05/16/23 nicotine 10 mg inhalation cartridge 1 inh inhalation .6-16X/DAY PRN 06/11/23 nicotine cravings #168 ea diazepam 5 mg tablet (Valium) 5 mg PO BID PRN #5 tabs 08/09/23 Allergies Allergy/AdvReac Type Severity Reaction Status Date / Time omeprazole Allergy rash Verified 08/09/23 17:46 General Stated Complaint: Nk/Back Pain BUBBA: 3 PFSH All Active Problems (Updated 08/09/23 @ 20:05 by GRACIELA Partida) Acquired torticollis (Acute) Peripheral artery disease (Chronic) Aortic valve stenosis (Chronic) Mild on 2020 Echo Bilateral carotid artery stenosis (Chronic) Followed by [facility] Vascular Essential hypertension (Chronic) Hyperlipidemia (Chronic) Prediabetes (Chronic) Osteopenia of left hip (Chronic) Dexa 03/2019 with T score -1.9, Z score of -0.7. Surgical History S/P right oophorectomy (~1982) Status post total abdominal hysterectomy (~1982) Family History Mother , 84 Disorder of thyroid gland Essential hypertension Heart disease Hyperlipidemia Stroke Breast cancer Abdominal aortic aneurysm Father , 82 Heart disease Hyperlipidemia Essential hypertension Brother Essential hypertension Hyperlipidemia Abdominal aortic aneurysm Brother Essential hypertension Hyperlipidemia Brother Meniere's disease Essential hypertension Brother Hyperlipidemia Son Diabetes Hyperlipidemia Son No problems noted. Son No problems noted. Daughter No problems noted. Maternal Grandmother , 90 Stomach cancer Maternal Grandfather , 92 Heart disease Paternal Grandmother Heart disease Paternal Grandfather Heart disease Social History (Updated 06/11/23 @ 14:25 by Chandni Phillips NP) Smoking/Tobacco Use Status: Current every day Tobacco Type: cigarettes Smoking packs per day: 0.25 Smoking cigarettes per day: 5.0 Years smoked: 51 Smoking pack-years: 12.75 Tobacco: How many years used: 51 Quit status: considering quitting (3 times) Second Hand Exposure: Yes Smoking risk assessment performed?: Yes Alcohol Intake: never Drug use: Never Substance use type: does not use Caregiver/Support person: No Household members: spouse, children and friend(s) Housing: house Communication Needs: None Do you need help understanding health information?: Never Pets and animals: Yes Pets and animals: dog(s) Sexually active: No Do you think of yourself as: straight/heterosexual Current gender identity: female What is your relationship status?: How often do you talk on the phone with friends or family?: once per week How often do you get together with friends or relatives?: never Do you belong to any clubs or organized social groups?: no Panel score (0-1 are the most socially isolated patients): 1 What type of physical activity do you participate in: walking and other Details: Gardening,wood working Duration: decline to answer Frequency: daily Nadja/Presybeterian: No preference Special nadja needs: No Seatbelt use: always Helmet use: No Drive intox or ride w/intox batch mixing truck driver: No Do you feel safe at home: Yes Do you feel safe in your relationship?: Yes Female Reproductive History Menstrual Menopause type: surgical History History 4 Para 4 Hx # Term Pregnancies Multiple births Hx # Pregnancies Ectopic pregnancies AB induced Hx Number of Living Children 4 AB spontaneous Course Vital Signs Vital signs: Vital Signs Temperature 36.6 C 08/09/23 17:41 Pulse 66 08/09/23 17:41 Respiratory Rate 20 08/09/23 17:41 Blood Pressure 182/58 H 08/09/23 17:41 Pulse Oximetry 100 08/09/23 17:41 Temperature 36.6 C 08/09/23 17:41 Temperature Source Skin 08/09/23 17:41 Pulse 63 08/09/23 20:14 Respiratory Rate 19 08/09/23 20:14 Respiratory Effort Normal, Non-Labored 08/09/23 17:49 Blood Pressure 157/61 H 08/09/23 20:14 Blood Pressure Position Sitting 08/09/23 17:41 Pulse Oximetry 97 08/09/23 20:14 Oxygen Delivery Method Room Air 08/09/23 17:41 Oxygen Flow Rate 0 08/09/23 17:41 Pain Level 6 08/09/23 20:16
== END 2023-08-09 20:22 | disposition home or self-care (01) ==
PROVIDERS: Emergency Provider Physician Assistant; PCP Nurse Practitioner Family
DX: M54.2 Cervicalgia (principal); M43.6 Torticollis; I10 Essential (primary) hypertension; F17.200 Nicotine dependence, unspecified, uncomplicated
CPT/HCPCS: 99283; J1100

== ENCOUNTER 2023-09-03 03:40 | Outpatient (CLI) | payer MEDICARE, SELFPAY ==
[2023-09-03 13:01] LABS: Abs Immature Grans 0.03 10^3/uL (0.0-0.06); Absolute Basophil Count 0.06 10^3/uL (0.0-0.2); Absolute Eosinophil Count 0.23 10^3/uL (0.0-0.7); Absolute Lymphocyte Count 3.15 10^3/uL (1.2-3.4); Absolute Monocyte Count 0.76 10^3/uL (0.1-0.8); Absolute Neutrophil Count 5.79 10^3/uL (1.2-6.7); Basophils % 0.6; Eosinophils % 2.3; HCT 39.1 % (36.0-46.0); HGB 13.4 g/dL (11.2-15.7); Immature Grans % 0.3; Lymphocytes % 31.4; MCH 30.3 pg (27.0-33.0); MCHC 34.3 % (32.0-36.0); MCV 89 fL (80-95); MPV 9.8 fL (8.0-11.0); Monocytes % 7.6; Neutrophils % 57.8; Platelet Count 281 10^3/uL (130-400); RBC 4.42 10^6/uL (3.93-5.22); RDW 13.2 % (11.7-14.6); WBC 10.02 10^3/uL (4.4-10.8)
[2023-09-03 14:05] LABS: ALT 19 U/L (14-59); AST 24 U/L (15-37); Albumin 3.8 g/dL (3.4-5.0); Alkaline Phosphatase 87 U/L (46-116); Anion Gap 10.4 mmol/L (3-11); BUN 14 mg/dL (7-18); Bilirubin, Total 0.4 mg/dL (0.2-1.0); CO2 27.6 mmol/L (21.0-32.0); CREATININE 0.8 mg/dL (0.55-1.02); Calcium 9.8 mg/dL (8.5-10.1); Chloride 103 mmol/L (98-107); Estimated GFR 79.71 (mL/min/1.73m2); Glucose 124 mg/dL (74-106); Potassium 3.7 mmol/L (3.5-5.1); Sodium 141 mmol/L (136-145)
[2023-09-04 09:04] LABS: Prealbumin 21 mg/dL (20-40)
== END 2023-09-03 03:41 | disposition home or self-care (01) ==
PROVIDERS: PCP Nurse Practitioner Family; Visit Provider Nurse Practitioner Family
DX: Z01.818 Encounter for other preprocedural examination (principal)
CPT/HCPCS: 36415; 80053; 84134; 85025

== ENCOUNTER 2023-09-03 13:48 | Outpatient (CLI) | payer MEDICARE, SELFPAY ==
--- NOTE | 2023-09-03 13:45 | RT.EKG_ITS ---
APPROVED REPORT Exam: Resting ECG Reason for Exam: pre op Patient Location: O HR:54 bpm ECG Measurements Heart Rate 54 AXIS IL 146 P 47 QRSd 95 QRS 23 QT 454 T 31 QTc 431 Conclusion Sinus rhythm...normal P axis, V-rate 50- 99 Atrial premature complex...SV complex w/ short R-R interval Otherwise normal ECG
== END 2023-09-03 13:49 | disposition home or self-care (01) ==
LOC: DI.CM 13:49
PROVIDERS: PCP Nurse Practitioner Family; Visit Provider Nurse Practitioner Family
DX: Z01.818 Encounter for other preprocedural examination (principal)
CPT/HCPCS: 93010

== ENCOUNTER → 2023-11-22 02:47 | Outpatient (CLI) | payer MEDICARE, SELFPAY ==
--- NOTE | 2023-11-22 12:45 | DI.DEXA_ITS ---
Exam(s) XR DEXA BONE DENSITY W/WO MALAIKA EXAM: XR DEXA BONE DENSITY W/WO MALAIKA CLINICAL HISTORY: osteopenia,SCREENING FOR OSTEOPOROSIS IN POSTMENOPAUSAL WOMAN,Z78.0 TECHNIQUE: COMPARISON: DX XR DEXA BONE DENSITY W/WO MALAIKA from 04/08/2019 FINDINGS: Lateral Spine Image: Unremarkable. No compression deformities identified. Left hip: Total T-Score: -1.4. This compares to -1.9 on the prior examination. Total Z-Score: 0.1 T- and Z-scores: Findings are consistent with osteopenia. Lumbar Spine: Total T-Score: 1.5. This compares to an 1.1 on the prior examination. Total Z-Score: 3.6 T- and Z-scores: Within normal limits. IMPRESSION: No evidence of osteoporosis.
== END ==
PROVIDERS: PCP Nurse Practitioner Family; Visit Provider Nurse Practitioner Family
DX: Z78.0 Asymptomatic menopausal state (principal); Z13.820 Encounter for screening for osteoporosis
CPT/HCPCS: 77080

== ENCOUNTER → 2024-06-19 01:21 | Outpatient (CLI) | payer MEDICARE, SELFPAY ==
--- NOTE | 2024-06-19 14:30 | DI.US_ITS ---
APPROVED REPORT EXAM: Comprehensive 2D, Doppler, and color-flow Echocardiogram Patient Location: Out-Patient Sales Advisory Manager: Mike Arnold RDCS (AE) Indications: Reassess aortic valve stenosis, mitral valve regurg Conclusion Normal left ventricular wall thickness and chamber size. Ejection fraction is 60 to 65%. Wall motio n is normal Normal right ventricular size and function Both atria are normal in size Aortic valve is sclerotic and trileaflet. There is mild to moderate aortic stenosis. Peak gradient is 35, mean 19 mmHg. Calculated aortic valve area 0.9 cm??. There is trace aortic regurgitation Normal mitral valve with mild regurgitation Normal tricuspid valve, mild regurgitation. Estimated right ventricular systolic pressure is 36 mmHg Compared to echocardiogram from 2020, aortic stenosis has progressed Wall motion Left Ventricle The left ventricle is normal size. The left ventricular systolic function is normal. The left ventric ular ejection fraction is within the normal range. There is normal left ventricular wall thickness. T here is normal LV segmental wall motion. There is no ventricular septal defect visualized. LVEF is 60 -65%. Right Ventricle The right ventricle is normal size. The right ventricular systolic function is normal. Atria The left atrium size is normal. The right atrium size is normal. The interatrial septum is intact wit h no evidence for an atrial septal defect. Aortic Valve Aortic valve is calcified. Aortic valve is trileaflet. Mild to moderate aortic stenosis. Peak aortic valve gradient is 34.9 mmHg. Highest mean aortic valve gradient is 19.28 mmHg. Calculated BARRETT by the continuity equation is 0.9 cm2. Trace aortic regurgitation. Mitral Valve The mitral valve is normal in structure. No evidence of mitral valve stenosis. Mild mitral regurgitat ion. Tricuspid Valve The tricuspid valve is normal in structure. There is no tricuspid valve stenosis. Mild tricuspid regu rgitation. The RVSP is 36.1 mmHg. Pulmonic Valve The pulmonary valve is normal in structure. There is no pulmonic valvular stenosis. There is no pulmo delmy valvular regurgitation. Great Vessels The aortic root is normal in size. Ascending aorta is not well visualized. Aortic arch is normal in c aliber. IVC is normal in size and collapses >50% with inspiration. Pericardium There is no pericardial effusion. 2D Dimensions IVSD d PLAX 0.82 cm F: 0.6-1.0 Ao Root d 2.49 cm F: 2.7 - 3.3 LVPW d PLAX 0.76 cm F: 0.6 - 1.0 LVID d PLAX 4.51 cm F: 3.8 - 5.2 LVDs 2.94 cm F: 2.2 - 3.5 LV EF Teichholz 64.1 % FS 34.79 % LV EDV (Teich) 92.9 mL LV ESV (Teich) 33.3 mL Stroke Vol Index (Teich) 34.06 M-Mode TAPSE 2.94 cm (M/F) >1.7 Auto EF LV EDV A4C 92.7 mL LV EDV A2C 85.6 mL LV EDV BP 88.4 mL LV ESV A4C 34.4 mL LV ESV A2C 30.9 mL LV ESV BP 33.2 mL LVEF(%) A4C 62.9 % LVEF(%) A2C 63.9 % LVEF(%) BP 62.5 % LV SV A4C 58.3 ml LV SV A2C 54.7 ml LV SV BP 55.3 ml LV CO A4C 2.8 L/min LV CO A2C 2.5 L/min LV CO BP 2.7 L/min HR A4C 48.72 BPM HR A2C 45.63 BPM LV EDV Index (BP) LA Volume LA Length A4C 4.4 cm LA Length A2C 4.9 cm LA Area A4C s 10.35 cm2 LA Area A2C s 13.22 cm2 LA Vol A4C A-L 20.76 mL LA Vol A2C A-L 30.15 mL LA Vol Biplane A-L 26.5 mL LA Vol/BSA A4C A-L LA Vol/BSA A2C A-L LA Vol/BSA BP A-L 15.2 mL/m2 LA Vol A4C MOD 18.7 mL LA Vol A2C MOD 27.8 mL LA Vol BP MOD 23.8 mL RA Volume RA Area A4C 12.9 cm2 RA ESV A4C (A-L) 33.4mL RA Vol/BSA A4C A-L RA Length A4C 4.2 cm RA ESV A4C (MOD) 30.5mL LV Diastology MV E' medial 0.082 (>0.07 m/s) MV E Vmax 0.97 (0.4-1.3 m/s) MV E/E' MED 11.88 (<14) MV A Vmax 0.95 (0.4-1.3 m/s) MV E' lateral 0.103 (>0.1 m/s) E/A Ratio 1.0 MV E/E' LAT 9.46 (<14) MV E' Average 0.092 m/s MV E/E'(average) 10.54 Aortic Valve AoV Vmax 2.95 m/s LVOT Vmax 0.99 m/s AoV Peak Grad 34.9 mmHg LVOT Peak Grad 3.9 mmHg AoV Area (Vmax) 0.84 cm2 LVOT VTI 0.276 m AoV VTI 0.780 m LVOT Mean Grad 2.4 mmHg AoV Mean Kushal. 2.11 m/s LVOT SV 68.93 mL AoV Mean Grad 19.3 mmHg LVOT Diam s 1.75 cm AoV Area (VTI) 0.88 cm2 AV Regurg Peak Gr. 34.90 mmHg Velocity Ratio 0.34 Mitral Valve MV DT 191 (160-240 msec) MR PISA Radius 0.70 cm MV Vmax TIPS 1.19 m/s MR Aliasing Velocity 0.30 m/s MV Mean Grad 1.6 (<2mmHg) MV VTI 0.319 m Pulmonary Valve PV Vmax 1.01 (0.5-1.5 m/s) RVOT Vmax 0.73 m/s PV Peak Grad 4.1 mmHg RVOT Peak Gr. 2.1 mmHg PV Mean Kushal 0.70 m/s RVOT VTI 0.184 m PV Mean Grad 2.3 mmHg RVOT Mean Gr. 1.5 mmHg Tricuspid Valve RA Pressure 3.00 mmHg TR Vmax 2.87 m/s TR Peak Grad 33.0 mmHg RVSP (TR) 36.1 mmHg
== END ==
PROVIDERS: PCP Nurse Practitioner Family; Visit Provider Nurse Practitioner Family
DX: I34.0 Nonrheumatic mitral (valve) insufficiency (principal)
CPT/HCPCS: 36415; 80053; 80061; 82306; 86704; 86706; 87340; 87389; 87798; 93306; 82607; 83036; 83735; 84443; 85025; 86618

== ENCOUNTER 2024-06-19 01:47 | Outpatient (CLI) | payer MEDICARE, SELFPAY ==
[2024-06-19 14:08] LABS: Abs Immature Grans 0.03 10^3/uL (0.0-0.06); Absolute Basophil Count 0.08 10^3/uL (0.0-0.2); Absolute Eosinophil Count 0.27 10^3/uL (0.0-0.7); Absolute Monocyte Count 0.84 10^3/uL (0.1-0.8); Absolute Neutrophil Count 5.54 10^3/uL (1.2-6.7); Basophils % 0.9 %; Eosinophils % 2.9 %; HGB 12.6 g/dL (11.2-15.7); Immature Grans % 0.3 %; Lymphocytes % 26.2 %; MCHC 32.3 % (32.0-36.0); MCV 90 fL (80-95); MPV 10.3 fL (8.0-11.0); Monocytes % 9.2 %; Neutrophils % 60.5 %; Platelet Count 261 10^3/uL (130-400); RBC 4.34 10^6/uL (3.93-5.22); RDW 13.2 % (11.7-14.6); RDW-SD 43.3 fL; WBC 9.16 10^3/uL (4.4-10.8)
[2024-06-19 14:18] LABS: Hemoglobin A1C 6.4 % (<5.7)
[2024-06-19 14:45] LABS: ALT 25 U/L (14-59); AST 23 U/L (15-37); Albumin 3.7 g/dL (3.4-5.0); Alkaline Phosphatase 84 U/L (46-116); Anion Gap 9.9 mmol/L (3-11); BUN 21 mg/dL (7-18); Bilirubin, Total 0.48 mg/dL (0.2-1.0); CO2 28.1 mmol/L (21.0-32.0); CREATININE 0.9 mg/dL (0.55-1.02); Calcium 9.5 mg/dL (8.5-10.1); Calculated LDL 88 mg/dL (<100); Chloride 103 mmol/L (98-107); Cholesterol 194 mg/dL (<200); Estimated GFR 68.77 (mL/min/1.73m2); Glucose 128 mg/dL (74-106); HDL Cholesterol 79 mg/dL (40-60); Potassium 3.9 mmol/L (3.5-5.1); Sodium 141 mmol/L (136-145); Total Protein 7.2 g/dL (6.4-8.2); Triglyceride 139 mg/dL (<150); Vitamin B12 293 pg/mL (193-986); Vitamin D 25 Total 42.9 ng/mL (30-100)
[2024-06-19 23:42] LABS: HBs Antibody, Quant 4.1 mIU/mL (See Note); HIV-1/2 Ag & Ab Screen Negative (Negative); Hep B Surface Ab Negative (See Note); Hepatitis B Core Antibody Negative (Negative); Hepatitis B Surface Antigen Negative (Negative)
[2024-06-20 11:43] LABS: Lyme Ab w Rflx to Lyme Confirm Negative (Negative)
[2024-06-22 16:24] LABS: Anaplasma phagocytophilum Negative (Negative); B. miyamotoi PCR Negative (Negative); Babesia divergens/MO-1 Negative (Negative); Babesia duncani Negative (Negative); Babesia microti Negative (Negative); Ehrlichia chaffeensis Negative (Negative); Ehrlichia ewingii/canis Negative (Negative); Ehrlichia muris eauclairensis Negative (Negative)
== END 2024-06-19 01:48 | disposition home or self-care (01) ==
LOC: LBO 01:47
PROVIDERS: PCP Nurse Practitioner Family; Visit Provider Nurse Practitioner Family
DX: Z11.59 Encounter for screening for other viral diseases (principal); I10 Essential (primary) hypertension; R73.03 Prediabetes; W57.XXXA Bitten or stung by nonvenomous insect and other nonvenomous arthropods, initial encounter; M85.852 Other specified disorders of bone density and structure, left thigh; Z11.4 Encounter for screening for human immunodeficiency virus [HIV]; E78.5 Hyperlipidemia, unspecified; G62.9 Polyneuropathy, unspecified
CPT/HCPCS: 36415; 80053; 80061; 82306; 86704; 86706; 87340; 87389; 87798; 82607; 83036; 83735; 84443; 85025; 86618

== ENCOUNTER 2024-06-30 02:55 | Outpatient (CLI) | payer MEDICARE, SELFPAY ==
--- NOTE | 2024-06-30 07:45 | DI.MAMMO_ITS ---
Exam(s) MAMMO SCREENING EXAM: MAMMO SCREENING CLINICAL HISTORY: screening,z12.39 TECHNIQUE: Mammograms were interpreted according to the usual protocol including computer analysis w [employer] CAD system, tomosynthesis and C-view imaging. COMPARISON: 2014 through 2022 FINDINGS: The breasts are composed of mainly fatty density , Breast Density category A. No suspicious masses or suspicious microcalcifications are seen. No skin thickening or abnormal axillary lymph nodes are seen. There has been no significant change from prior exams. IMPRESSION: BI-RADS Category 1, Negative mammogram Yearly screening mammography is recommended. Breast Density - Category A, fatty density. A negative radiographic report should not delay biopsy if a dominant or clinically suspicious mass is present. Up to ten percent of cancers are not identified on mammography. A negative report may reinforce clinical impression. Adenosis and dense breasts may obscure an underlying neoplasm. False positive reports average 6 to 10%. Patient will receive a letter notifying them of these results.
== END 2024-06-30 03:15 ==
LOC: DI 02:55
PROVIDERS: PCP Nurse Practitioner Family; Visit Provider Nurse Practitioner Family
DX: Z12.31 Encounter for screening mammogram for malignant neoplasm of breast (principal)
CPT/HCPCS: 77063; 77067

== ENCOUNTER 2025-01-16 09:16 | Outpatient (CLI) | payer MEDICARE, SELFPAY ==
--- NOTE | 2025-01-16 08:30 | DI.RAD_ITS ---
Exam(s) XR SHOULDER LT COMPLETE 2+V EXAM: XR SHOULDER LT COMPLETE 2+V CLINICAL HISTORY: left shoulder pain, limited ROM, M25.512. TECHNIQUE: 2D digital imaging was performed. Three views. COMPARISON: No exams were available for comparison FINDINGS: BONES: No acute fracture is present. No bony destructive lesion is seen. Mild spurring greater tuber osity. JOINTS: No dislocation present. Mild spurring of the AC joint and undersurface of the acromion. Gle nohumeral joint space is maintained. Minimal periarticular spurring. SOFT TISSUE: Normal. IMPRESSION: Mild degenerative changes. DATA REPOSITORY: RADIATION DOSE DELIVERED:
== END 2025-01-16 09:36 ==
LOC: DI 09:17
PROVIDERS: PCP Nurse Practitioner Family; Visit Provider Nurse Practitioner Family
DX: M25.512 Pain in left shoulder (principal)
CPT/HCPCS: 73030

== ENCOUNTER 2025-02-06 00:45 | Outpatient (CLI) | payer MEDICARE, SELFPAY ==
--- NOTE | 2025-02-06 06:45 | DI.MRI_ITS ---
Exam(s) MR UPPER JOINT LT WO EXAM: MR UPPER JOINT LT WO CLINICAL HISTORY: left shoulder pain, limited ROM,M25.512 TECHNIQUE: Multiplanar multisequence MRI of the shoulder was performed. COMPARISON: CR XR SHOULDER LT COMPLETE 2+V from 01/16/2025 FINDINGS: MARROW:There is no evidence of fracture, Hill-Sachs deformity, nor ominous osseous lesions. GLENOHUMERAL JOINT: No prominent joint effusion nor obvious loose intra-articular bodies. There are mild degenerative changes in the glenohumeral joint with some loss of articular cartilage and tiny os teophyte on the inferior articular surface of the humeral head. There are no degenerative subarticul ar cysts in the humeral head nor within the osseous glenoid. GLENOID LABRUM: There is signal abnormality throughout the labrum consistent with probable circumfere ntial tearing. BICEPS TENDON: Exhibits normal position within the intertubercular groove and no evidence of tear nor detachment from the anterosuperior labrum. ROTATOR CUFF MECHANISM: AC JOINT/ACROMIUM: There are significant degenerative changes in the AC joint. No evidence of enthes ophyte at the level the coracoacromial ligament There is no evidence of os acromiale. Supraspinatus: There is tearing of the distal anterior aspect of the supraspinatus tendon; rim-type. There is no retraction of the musculotendinous junction. There is some tendinitis signal also evident . Infraspinatus: There is a small focus of partial-thickness tearing on the articular surface side at t he insertional aspect, best seen on sagittal images. No full-thickness tear. No muscle atrophy. Teres Minor: Intact. No evidence of tear nor muscle atrophy. Subscapularis/anterior cuff: Some mild tendinitis signal. No high-grade tear. No muscle atrophy. BICEPS TENDON: Exhibits normal position within the intertubercular groove. No evidence of tear. Fluid in the tendon sheath of the biceps within the intertubercular groove. QUADRILATERAL SPACE: No evidence of mass in the region of the axillary nerve and dorsal circumflex hu meral vessels. Visualized triceps muscle at this level appears unremarkable. IMPRESSION: 1. There is significant rim-type tearing of the distal anterior aspect of the supraspinatus tendon, t ype of full-thickness tearing. There is no retraction. No atrophy. 2. Small area of undersurface partial-thickness tearing of the infraspinatus tendon at its insertiona l aspect. There is no full-thickness tear of the infraspinatus and no atrophy. 3. Some tendinitis signal is seen in the subscapularis but no high-grade tear. 4. There is multilevel circumferential tearing of the glenoid labrum. There is no tear nor displaceme nt of the long head biceps tendon. 5. Mild degenerative changes are noted in the glenohumeral joint and some degenerative change also se en in the AC joint. DATA REPOSITORY:
--- NOTE | 2025-02-06 16:16 | DI.VRAD_ITS ---
PROCEDURE INFORMATION: Exam: MR Left Upper Extremity Joint Without Contrast; Shoulder Exam date and time: 02/06/2025 10:03 AM Age: 69 years old Clinical indication: Other: Left shoulder TECHNIQUE: Imaging protocol: Magnetic resonance imaging of the left upper extremity without contrast. Exam focused on the shoulder. COMPARISON: CR XR SHOULDER LT COMPLETE 2+V 01/16/2025 1:37 PM FINDINGS: Bones/joints: Acromioclavicular degenerative arthritis. Small glenohumeral effusion. Tiny amount of fluid in the subacromial space. Mild chondromalacia glenohumeral joint. Glenoid labrum: Circumferential tearing of the glenoid labrum. Supraspinatus tendon: Full-thickness or near full-thickness rim rent tear distal anterior supraspinatus tendon at its attachment to the humerus. The tear measures approximately 1.9 cm in AP dimension. No appreciable tendon retraction. Supraspinatus tendinopathy. Infraspinatus tendon: Undersurface tearing distal anterior infraspinatus tendon. Subscapularis tendon: Subscapularis tendinopathy. Teres minor tendon: Unremarkable. No evidence of tear. Tendon of biceps brachii: Unremarkable. No evidence of tear. Glenohumeral ligaments: Unremarkable. Soft tissues: Unremarkable. IMPRESSION: 1. Full-thickness or near full-thickness rim rent tear distal anterior supraspinatus tendon 2. Undersurface tearing anterior infraspinatus tendon 3. Subscapularis tendinopathy 4. Circumferential tearing of the glenoid labrum 5. Acromioclavicular degenerative arthritis 6. Small glenohumeral effusion 7. Acromioclavicular and glenohumeral degenerative arthritis Dictated and Authenticated by: Barbara Robert MD. Orderin Alan Tariq MD
== END 2025-02-06 01:05 ==
LOC: DI 00:45
PROVIDERS: PCP Nurse Practitioner Family; Visit Provider Nurse Practitioner Family
DX: S46.012A Strain of muscle(s) and tendon(s) of the rotator cuff of left shoulder, initial encounter (principal); X58.XXXA Exposure to other specified factors, initial encounter
CPT/HCPCS: 73221

== ENCOUNTER 2025-02-12 01:26 | Outpatient (CLI) | payer MEDICARE, SELFPAY ==
--- NOTE | 2025-02-12 07:45 | DI.MRI_ITS ---
Exam(s) MR CERVICAL SPINE WO EXAM: MR CERVICAL SPINE WO CLINICAL HISTORY: chronic neck pain,M54.2 TECHNIQUE: Multiplanar multisequence MRI of the cervical spine was performed without intravenous con trast. COMPARISON: No exams were available for comparison FINDINGS: BONES: There are endplate osteophytes seen from C4-5 through C7-T1. Intervertebral disc spaces are no rmal. Alignment is normal. Mild degenerative endplate signal changes are seen. CERVICAL CORD: Craniovertebral junction is unremarkable. The cervical cord is normal size and signal intensity. SOFT TISSUES: Unremarkable. C2-3: No disc herniation or bulge is identified. No significant central spinal canal or neural forami nal stenosis. C3-4: No disc herniation or bulge is identified. No significant central spinal canal or neural forami nal stenosis C4-5: There is prominence of the osteophyte disc complex with flattening of the anterior aspect of th e spinal cord. There is normal signal in the spinal cord. The diameter of the spinal canal is 8.6 m m. Mild degenerative changes of the uncovertebral joints cause mild narrowing of the neural foramen bilaterally. C5-6: There is mild prominence of the osteophyte disc complex. There is effacement of the anterior s ubarachnoid space. There is some flattening of the anterior spinal cord. There is normal signal in the spinal cord. The AP diameter of the spinal canal is 7 mm. Degenerative changes of the uncoverte bral joints cause mild bilateral neural foraminal narrowing. C6-7: No disc herniation or bulge is identified. No significant central spinal canal or neural forami nal stenosis C7-T1: No disc herniation or bulge is identified. No significant central spinal canal or neural ananya inal stenosis IMPRESSION: Degenerative changes in the cervical spine particularly at C4-5 and C5-C6 as described above. DATA REPOSITORY:
== END 2025-02-12 01:46 ==
LOC: DI 01:26
PROVIDERS: PCP Nurse Practitioner Family; Visit Provider Nurse Practitioner Family
DX: M50.021 Cervical disc disorder at C4-C5 level with myelopathy (principal)
CPT/HCPCS: 72141

== ENCOUNTER 2025-07-15 14:00 | Outpatient (CLI) | payer MEDICARE, SELFPAY ==
--- NOTE | 2025-07-15 09:35 | DI.MAMMO_ITS ---
Exam(s) MAMMO SCREENING EXAM: MAMMO SCREENING CLINICAL HISTORY: screening Z12.39 TECHNIQUE: Bilateral full field digital CC and MLO mammographic images were obtained with 3D tomosynthesis and utilizing computer aided detection (CAD). COMPARISON: Comparison is made with prior examinations. FINDINGS: Masses/Architectural Distortion: No suspicious masses or areas of architectural distortion are present. Microcalcifications: No suspicious pleomorphic-type are seen. Skin Thickening/Nipple Retraction: None. IMPRESSION: 1. No significant interval change with no specific features of malignancy noted. 2. Unless there is more urgent need, screening mammography is recommended, as per [employer] [employer] guidelines. BI-RADS Category 1 - Negative Breast Density - Category A - The breast are almost entirely fatty. Breast density Category C or D implies that the patient has dense breast tissue. Dense breast tissue can make it harder to find cancer on a mammogram. Dense breast tissue is also associated with an increased risk of breast cancer. This information about the result of the mammogram report was provided to the patient to raise their awareness. Use this report when you speak with the patient about their risks for breast cancer, which includes their family history. At that time, you may recommend additional screening tests (Ultrasound or MRI) as these tests may add significant information. A negative radiographic report should not delay biopsy if a dominant or clinically suspicious mass is present. Up to ten percent of cancers are not identified on mammography. A negative report may reinforce clinical impression. Adenosis and dense breasts may obscure an underlying neoplasm. False positive reports average 6 to 10%. Patient will receive a letter notifying them of these results.
== END 2025-07-15 14:20 ==
LOC: DI 14:00
PROVIDERS: PCP Nurse Practitioner Family; Visit Provider Nurse Practitioner Family
DX: Z12.31 Encounter for screening mammogram for malignant neoplasm of breast (principal); R73.03 Prediabetes; I10 Essential (primary) hypertension
CPT/HCPCS: 77063; 77067

== ENCOUNTER 2025-08-01 15:09 | Emergency (ER) | payer MEDICARE, SELFPAY ==
[2025-08-01 15:15] VITALS: BP 135/77; PULSE 71; RESP 16; TEMP 36.2; O2SAT 94
--- NOTE | 2025-08-01 15:30 | DI.RAD_ITS ---
Exam(s) XR HAND LT LIMITED XR WRIST LT COMPLETE EXAM: XR WRIST LT COMPLETE and XR hand LT limited CLINICAL HISTORY: FOOSH, pain to base of thumb and dorsum of wrist. TECHNIQUE: 2D digital imaging was performed of the left hand and wrist. Five images were obtained. PA, oblique and lateral views were obtained. COMPARISON: There are no priors for comparison. FINDINGS: BONES: There is an acute nondisplaced fracture through the waist of the scaphoid. No bony destructive lesion is seen. JOINTS: The carpal bones are normally aligned. There are degenerative changes seen at the articulation of the scaphoid and the trapezium. Degenerative changes are seen in the interphalangeal joints of the fingers particularly the DIP joints. SOFT TISSUE: Normal. IMPRESSION: Nondisplaced acute fracture through the waist of the scaphoid. DATA REPOSITORY: RADIATION DOSE DELIVERED:
--- NOTE | 2025-08-01 15:43 | W.ED.GENAD ---
Discharge Plan Disposition Patient Disposition: Home Discharge Details Clinical Impression: Closed fracture of scaphoid of left wrist Primary Care Provider: Chandni Phillips ED Provider: April Easton Home Meds and New Rx's Prescriptions: No Action hydrochlorothiazide 25 mg tablet 25 mg PO DAILY Qty: 90 3RF cholecalciferol (vitamin D3) 1,000 unit capsule 1,000 unit PO DAILY losartan 100 mg tablet 100 mg PO DAILY Qty: 90 3RF amlodipine 5 mg tablet 5 mg PO DAILY Qty: 90 3RF magnesium 200 mg tablet 200 mg PO PRN aspirin 81 mg tablet,delayed release (DR/EC) 81 mg PO DAILY Qty: 90 4RF rosuvastatin 20 mg tablet 20 mg PO DAILY Qty: 90 3RF Discharge Instructions Instructions: Wrist Fracture (DC) Additional Instructions: Please call [facility] orthopedics first thing Sunday to schedule follow-up appointment in 1 to 2 weeks. You sustained a fracture of your scaphoid and your wrist. Please use the thumb spica Velcro splint at all times, taking it off briefly only to bathe or to wash your hands. Put it back on immediately after taking it off. Use ice for 15 to 20 minutes at a time, elevate above heart level, and use Tylenol 650 mg 3 times a day [id number] for discomfort as needed. Keep an eye out for signs of neurovascular compromise such as tingling/numbness, pain, coolness, blueness/paleness, or other acute changes that are concerning in your fingers or wrist. Ifthese, please seek care immediately. Referrals: [facility] [Provider Group] Discharge Data Discharge Date/Time-TO BE ENTERED AT DEPARTURE: 08/01/25 18:04 HPI General Date/Time Provider Initiated Documentation: 08/01/25 15:29. HPI Narrative: Amara is a 70-year-old female who presents to the emergency department for evaluation of left wrist FOOSH injury. She tripped over her slipper at the doorway, fell forward, and used her hands to break the fall. She reports tenderness and soreness in both hands, especially the left, with intensified pain on wrist or thumb movement. Denies head injury, other extremity injury, distal numbness/tingling, abrasion/lacerations. No dizziness or chest pain prior to the fall, no preceeding symptoms. Right-handed, with a history of concern for osteoporosis and multiple falls; denies history of pathologic fractures. She has a torn rotator cuff (no surgery) and had eye surgery. Not on anticoagulation other than ASA. Related Data Home Medications ?Medication ?Instructions ?Recorded ?Confirmed cholecalciferol (vitamin D3) 25 1,000 unit PO DAILY 09/24/19 08/01/25 mcg (1,000 unit) capsule aspirin 81 mg tablet,delayed 81 mg PO DAILY #90 tab-caps 11/09/20 08/01/25 release hydrochlorothiazide 25 mg tablet 25 mg PO DAILY #90 tabs 01/15/25 08/01/25 amlodipine 5 mg tablet 5 mg PO DAILY #90 tabs 02/09/25 08/01/25 magnesium 200 mg tablet 200 mg PO PRN 03/12/25 08/01/25 rosuvastatin 20 mg tablet 20 mg PO DAILY #90 tabs 06/05/25 08/01/25 losartan 100 mg tablet 100 mg PO DAILY #90 tabs 06/15/25 08/01/25 Previous Rx's ?Medication ?Instructions ?Recorded aspirin 81 mg tablet,delayed 81 mg PO DAILY #90 tab-caps 11/09/20 release hydrochlorothiazide 25 mg tablet 25 mg PO DAILY #90 tabs 01/15/25 amlodipine 5 mg tablet 5 mg PO DAILY #90 tabs 02/09/25 rosuvastatin 20 mg tablet 20 mg PO DAILY #90 tabs 06/05/25 losartan 100 mg tablet 100 mg PO DAILY #90 tabs 06/15/25 Allergies Allergy/AdvReac Type Severity Reaction Status Date / Time omeprazole Allergy rash Verified 08/01/25 15:18 General Stated Complaint: Orthopedic BUBBA: 4 Exam Narrative Exam Narrative: General Appearance: Normal. Vital signs: Within normal limits. Back, Musculoskeletal: No pain with elbow movement. Tenderness and soreness in the left wrist/base of left thumb with movement. No snuffbox tenderness. No pain on palpation unless moved. Skin: Bruise on the back of the left wrist. Neurological: Intact sensation in fingers. Able to spread fingers, make a thumbs up, and form an 'okay' sign. Psychiatric: Normal. Course Vital Signs Vital signs: Vital Signs Temperature 36.2 C L 08/01/25 15:15 Pulse 71 08/01/25 15:15 Respiratory Rate 16 08/01/25 15:15 Blood Pressure 135/77 08/01/25 15:15 Pulse Oximetry 94 08/01/25 15:15 Temperature 36.2 C L 08/01/25 15:15 Temperature Source Oral 08/01/25 15:15 Pulse 71 08/01/25 15:15 Respiratory Rate 16 08/01/25 15:15 Blood Pressure 135/77 08/01/25 15:15 Blood Pressure Position Sitting 08/01/25 15:15 Pulse Oximetry 94 08/01/25 15:15 Oxygen Delivery Method Room Air 08/01/25 15:15 Oxygen Flow Rate 0 08/01/25 15:15 Medical Decision Making 70-year-old female with wrist pain after a fall. Differential Diagnosis: - Wrist sprain: Suspected due to pain and bruising. Ice pack provided. X-rays ordered to rule out fracture. - Wrist fracture: Considered due to pain and bruising. X-rays ordered to confirm or exclude. - No red flags concerning for dislocation, open fracture, or neurovascular compromise ED Course: - Ice pack provided - X-rays ordered Final Assessment: Xray notable for nondisplaced scaphoid fracture. Discussed case with Dr. Nori Snowden, velcro thumb spica appropriate; this was provided in ED, applied by ALIA Rodríguez Clinical Impression: - Right nondisplaced scaphoid fracture Follow-Up: Follow up with orthopedics in 1 to 2 weeks. Reviewed discharge instructions, including use of Velcro thumb spica at all times, pain control, red flags concern for neurovascular compromise/need to return to emergency care. She voices agreement with plan of care Patient Education: Discussed importance of follow-up care and safety measures to prevent falls Patient consented to the use of NATAN Imaging Data Radiologic Study: Radiologist's impression: Exam(s) XR HAND LT LIMITED XR WRIST LT COMPLETE EXAM: XR WRIST LT COMPLETE and XR hand LT limited CLINICAL HISTORY: FOOSH, pain to base of thumb and dorsum of wrist. TECHNIQUE: 2D digital imaging was performed of the left hand and wrist. Five images were obtained. PA, oblique and lateral views were obtained. COMPARISON: There are no priors for comparison. FINDINGS: BONES: There is an acute nondisplaced fracture through the waist of the scaphoid. No bony destructive lesion is seen. JOINTS: The carpal bones are normally aligned. There are degenerative changes seen at the articulation of the scaphoid and the trapezium. Degenerative changes are seen in the interphalangeal joints of the fingers particularly the DIP joints. SOFT TISSUE: Normal. IMPRESSION: Nondisplaced acute fracture through the waist of the scaphoid. Quality:SDOH Health Related Social Needs: Health related social needs lonely/isolated Health related social needs details . PFSH All Active Problems (Updated 08/01/25 @ 17:57 by April Blankenship) Closed fracture of scaphoid of left wrist (Acute) Left rotator cuff tear (Chronic) Bilateral carotid artery stenosis (Chronic) S/p left CEA 2022 Peripheral artery disease (Chronic) Aortic valve stenosis (Chronic) Echo 2023, mild to moderate Mitral valve regurgitation (Chronic) Essential hypertension (Chronic) Hyperlipidemia (Chronic) Prediabetes (Chronic) GERD (gastroesophageal reflux disease) (Chronic) Peripheral neuropathy (Chronic) Osteopenia of left hip (Chronic) Dexa 2023 Medical History Former cigarette smoker 12.75pack/yr hx, quit 2022 Surgical History (Updated 07/03/25 @ 07:48 by Chandni Phillips NP) History of right cataract surgery (07/01/25) History of left-sided carotid endarterectomy (09/10/23) S/P right oophorectomy (~1982) Status post total abdominal hysterectomy (~1982) Family History Mother , 84 Disorder of thyroid gland Essential hypertension Heart disease Hyperlipidemia Stroke Breast cancer Abdominal aortic aneurysm Father , 82 Heart disease Hyperlipidemia Essential hypertension Brother Essential hypertension Hyperlipidemia Abdominal aortic aneurysm Brother Essential hypertension Hyperlipidemia Brother Meniere's disease Essential hypertension Brother Hyperlipidemia Son Diabetes Hyperlipidemia Son No problems noted. Son No problems noted. Daughter No problems noted. Maternal Grandmother , 90 Stomach cancer Maternal Grandfather , 92 Heart disease Paternal Grandmother Heart disease Paternal Grandfather Heart disease Social History Smoking/Tobacco Use Status: Former Tobacco Use tobacco type: cigarettes Quit Date: 09/09/23 Tobacco: How many years used: 51 Quit status: quit date established Second Hand Exposure: Yes Smoking risk assessment performed?: Yes Alcohol Intake: never Drug use: Never Substance use type: does not use Adopted: No Caregiver/Support person: No Household members: spouse, family and children Housing: house Number of Children: 5 number of grandchildren: 8 Communication Needs: None Education Level: high school Do you need help understanding health information?: Never current occupation: Retired Pets and animals: Yes Pets and animals: dog(s) Sexually active: No Do you think of yourself as: straight/heterosexual Current gender identity: female What is your relationship status?: How often do you talk on the phone with friends or family?: once per week How often do you get together with friends or relatives?: never Do you belong to any clubs or organized social groups?: no Panel score (0-1 are the most socially isolated patients): 1 What type of physical activity do you participate in: other Details: Taking care of Art, 2 Grand kids, and 3 dogs Duration: other Details: All day Frequency: daily Nadja/Restorationism: Denominational Special nadja needs: No Seatbelt use: always Helmet use: No Drive intox or ride w/intox escort car driver: No Firearms in home: Yes Firearms unloaded and locked: Yes Do you feel safe at home: Yes Do you feel safe in your relationship?: Yes Victim of physical abuse: No Victim of emotional abuse: No Victim of sexual abuse: No Would you like helpful sources: No Female Reproductive History Menstrual Menopause type: surgical History History 4 Para 4 Hx # Term Pregnancies Multiple births Hx # Pregnancies Ectopic pregnancies AB induced Hx Number of Living Children 4 AB spontaneous
== END 2025-08-01 18:04 | disposition home or self-care (01) ==
PROVIDERS: Emergency Provider Nurse Practitioner Family; PCP Nurse Practitioner Family
DX: S62.002A Unspecified fracture of navicular [scaphoid] bone of left wrist, initial encounter for closed fracture (principal); I10 Essential (primary) hypertension; E78.5 Hyperlipidemia, unspecified; Z79.82 Long term (current) use of aspirin; Z87.891 Personal history of nicotine dependence; W01.0XXA Fall on same level from slipping, tripping and stumbling without subsequent striking against object, initial encounter; Y93.01 Activity, walking, marching and hiking; Y92.010 Kitchen of single-family (private) house as the place of occurrence of the external cause
CPT/HCPCS: 99283; 73110; 73120

== ENCOUNTER 2025-08-04 04:54 | Outpatient (CLI) | payer MEDICARE, SELFPAY ==
--- NOTE | 2025-08-04 15:04 | DI.CT_ITS ---
Exam(s) CT UPPER EXTREMITY LT WO EXAM: CT UPPER EXTREMITY LT WO CLINICAL HISTORY: S62.002A L scaphoid fracture, closed; FX Navicular bone LT wrist initial TECHNIQUE: Imaging Protocol: Axial computed tomography images with coronal and sagittal reformatted images were created and reviewed. CONTRAST MATERIAL: Noncontrast COMPARISON: CR XR WRIST LT COMPLETE from 08/01/2025 CR XR HAND LT LIMITED from 08/01/2025 FINDINGS: Bones: There is a nondisplaced fracture through the waist of the scaphoid. No evidence of avascular necrosis. No additional fractures. The bones appear osteopenic. No lytic or sclerotic lesions are identified. No cellulitic or osteomyelitic changes are identified. Joints: There is narrowing and mild sclerosis at the scaphoid trapezium trapezoid joints. Soft Tissues: Soft tissue edema around the wrist. IMPRESSION: Nondisplaced fracture through the waist of the scaphoid. RADIATION DOSE DELIVERED: Total DLP DATA REPOSITORY: All CT scans at this facility are submitted to the National Radiology Data Registry (NRDR) Dose Index Registry (DIR) with the [employer] (ACR). RADIATION OPTIMIZATION: All CT scans at this facility use at least one of these dose optimization techniques: automated exposure control; mA and/or kV adjustment per patient size (includes targeted exams where dose is matched to clinical indication); or iterative reconstruction.
== END 2025-08-04 05:14 ==
LOC: DI 08-05 04:54
PROVIDERS: PCP Nurse Practitioner Family; Visit Provider Student in an Organized Health Care Education/Training Program
DX: S62.002A Unspecified fracture of navicular [scaphoid] bone of left wrist, initial encounter for closed fracture (principal); X58.XXXA Exposure to other specified factors, initial encounter
CPT/HCPCS: 73200